=== PATIENT | female | born 1990 | race African-American/Black ===

== ENCOUNTER 2019-01-25 09:05 | Emergency (ER) | payer SELFPAY ==
[2019-01-25 09:12] VITALS: BP 126/73; PULSE 73; TEMP 97.5; BMI 28.0
--- NOTE | 2019-01-25 09:36 | PDOC ---
History of Present Illness - General Chief Complaint: ,Possible Stated Complaint: BODYPAIN POSSIBLE Time Seen by Provider: 01/25/19 09:34 History Source: Patient Exam Limitations: No Limitations - History of Present Illness Travel History: No Initial Comments: 01/25/19 09:49 Patient is here with concerns about . States had tubes tied a few years ago, but states she has had some symptoms of including bloating , abnormal menstrual cycle, breast tenderness and cramps in her legs. Has been 5 times, 4 live births and one miscarriage. States the symptoms are similar to her in the past. LMP was December 22 01/25/19 09:50 Timing/Duration: reports: getting worse Quality: reports: mild Pain Radiation: reports: no radiation Activities at Onset: reports: none Past History - Travel Traveled outside of the country in the last 30 days: No Close contact w/someone who was outside of country & ill: No - Past Medical History Allergies/Adverse Reactions: Allergies Allergy/AdvReac Type Severity Reaction Status Date / Time No Known Allergies Allergy Verified 01/25/19 09:09 Home Medications: Ambulatory Orders NK [No Known Home Medication] 01/25/19 - Suicide/Smoking/Psychosocial Hx Smoking History: Never smoked Information on smoking cessation initiated: No Hx Alcohol Use: No Drug/Substance Use Hx: No Review of Systems - Review of Systems Able to Perform ROS?: Yes Is the patient limited Swedish proficient: Yes Constitutional: Yes: Symptoms Reported, See HPI, Loss of Appetite, Malaise. No : Chills, Fever HEENTM: No: Symptoms Reported Respiratory: No: Symptoms reported Musculoskeletal: No: Symptoms Reported Integumentary: Yes: See HPI. No: Symptoms Reported All Other Systems: Reviewed and Negative *Physical Exam - Vital Signs Last Vital Signs Temp Pulse Resp BP Pulse Ox 97.5 F L 73 17 126/73 100 01/25/19 09:09 01/25/19 09:09 01/25/19 09:09 01/25/19 09:09 01/25/19 09:09 - Physical Exam General Appearance: Yes: Nourished, Appropriately Dressed, Apparent Distress HEENT: positive: JULIETA, Normal ENT Inspection, TMs Normal, Pharynx Normal Neck: positive: Supple Respiratory/Chest: positive: Normal Breath Sounds Gastrointestinal/Abdominal: positive: Soft. negative: Tender, Distended, Guarding, Rebound Musculoskeletal: positive: Normal Inspection Extremity: positive: Normal Capillary Refill, Normal Inspection Integumentary: positive: Normal Color, Dry, Warm Neurologic: positive: plush dresser II-XII NML intact, Fully Oriented, Alert, Normal Mood/ Affect, Normal Response, Motor Strength /5 Progress Note - Progress Note Progress Note: U negative urine negative.. *DC/Admit/Observation/Transfer Diagnosis at time of Disposition: Primary dysmenorrhea - Discharge Dispostion Disposition: HOME Condition at time of disposition: Stable Decision to Admit order: No - Referrals - Patient Instructions Printed Discharge Instructions: DI for Dysmenorrhea Additional Instructions: Rest, drink lots of fluids: Teas, water, soups Eva jj, carbonated beverages for the bubbles May try peppermint teas Avoid heavy , spicy or fatty foods until symptoms have resolved Followup with private physician in one to 2 days as needed Return to emergency department for worsened symptoms, fevers, dehydration - Post Discharge Activity Forms/Work/School Notes: Back to Work
== END 2019-01-25 10:23 | disposition home or self-care (01) ==
LOC: JERFT 09:05
DX: N94.4 Primary dysmenorrhea (principal)
CPT/HCPCS: 84703; 99281-25

== ENCOUNTER 2019-05-13 20:33 | Emergency (ER) | payer OTHER | END 2019-05-14 03:36 | LOC: JER 05-14 03:36 ==

== ENCOUNTER 2019-05-14 04:23 | Inpatient (IN) | payer OTHER ==
--- NOTE | 2019-05-14 04:26 | HP ---
[facility] Rehab Assess/Revision - Admission History Admitted to Rehab from: Emergency Department Date of Admission to Rehab: 05/14/2019 - Vital signs Vital Signs: B/P: 136/70 HR: 96 - Findings Detox History & Physical reviewed: Yes (ED and from earlier presentation to the [facility].) Concur with findings: Yes Comments/Additional Findings: Patient was assessed in the [facility] on 05/13/19 and sent to [facility] ED for evaluation of abdominal pain. ED PE and diagnostic tests reviewed. ED report indicates UTI (possible pylonephritis) and patient was returned to [facility] on antibiotic therapy today. Patient PE in [facility] and Utox reviewed. Patient states w/o buprenorphine use for 5 days. Patient remains a candidate for rehab with diagnoses early remission marijuana and buprenorphine. Inpatient Rehab Admission - Rehab Decision to Admit Inpatient rehab admission?: Yes - Initial Determination Are CD services needed?: Yes Free of communicable disease: Yes Not in need of hospitalization: Yes - Rehab Admission Criteria Previous failed treatment: Yes Poor recovery environment: Yes Comorbidities: Yes Lacks judgement: No Patient is meeting Inpatient Rehab admission criteria:: Yes
[2019-05-14] MEDS ORDERED: LOPERAMIDE HCL 2 MG CAPSULE PO PRN (05:08)
[2019-05-14] MEDS ORDERED: hydrOXYzine PAMOATE 50 MG CAPSULE (FP) PO PRN (05:08)
[2019-05-14] MEDS ORDERED: MAGNESIUM HYDROX 2400MG/30ML ORAL SUSPENSION 30 ML CUP PO PRN (05:08)
[2019-05-14] MEDS ORDERED: MENTHOL/PHENOL 1 EACH UD MM PRN (05:08)
[2019-05-14] MEDS ORDERED: ACETAMINOPHEN 325 MG TABLET (FP) PO PRN (05:08)
[2019-05-14] MEDS ORDERED: P-EPHED 60MG/TRIPROLIDI 2.5MG TABLET PO PRN (05:08)
[2019-05-14] MEDS ORDERED: guaiFENesin 200 MG/10 ML 10 ML UNIT-DOSE CUPS PO PRN (05:08)
[2019-05-14] MEDS ORDERED: MAG HYDROX/AL HYDROX/SIMETH 30 ML UNIT-DOSE CUP PO PRN (05:08)
[2019-05-14] MEDS ORDERED: MAGNESIUM CITRATE 300 ML BOTTLE PO PRN (05:08)
--- NOTE | 2019-05-14 07:30 | CONSULT ---
[facility] Psychiatric Consult - Data Date of interview: 05/14/19 Admission source: Drug court Identifying data: Ms Lott is a 28 years old single Black female, mother of 4 children, unemployed receving food stamp, living with children's father seeking rehab treatment for opioid, cocaine and cannabis Substance Abuse History: Reports history of heroin, suboxone, crack cocaine and marijuana use. Refer to addiction counselor's summary for further information Medical History: Significant for anemia, bronchial asthma and x2(2015 , 2016). Smokes 5 cigarette daily Psychiatric History: Reports that her first psychiatric contact was on 05/04/19 while at [facility]) for feeling depressed. She was prescribed Prozac 10mg/day for depression and Seroquel 50 mg/ hs for insomnia. She was released on 05/13/19 and referred to this facility. At present, denies depressive symptoms, S/H ideations. After discussion of symptomatology presented while at [facility], patient's pathology is more consistent with Adjustment Disorder R/O Dysthymia. According to typewriters functional tester, administration of psychotropic medication is not indicated at this time. Physical/Sexual Abuse/Trauma History: Denies history of any type of abuse as well as DV relationship. Additional Comment: Reports history of 3 previous misdemear arrests. Denies being on probation but reports having an open case of possession of paraphernalia Mental Status Exam - Mental Status Exam Alert and Oriented to: Time, Place, Person Cognitive Function: Fair Patient Appearance: Well Groomed Mood: Hopeful, Euthymic Patient Behavior: Cooperative Speech Pattern: Clear Voice Loudness: Normal Thought Process: Intact, Goal Oriented Thought Disorder: Not Present Hallucinations: Denies Suicidal Ideation: Denies Homicidal Ideation: Denies Insight/Judgement: Poor Sleep: Poorly Appetite: Fair Muscle strength/Tone: Normal Gait/Station: Normal Psychiatric Findings - Problem List ([place] 1, 2,3) (1) Adjustment disorder with depressed mood Current Visit: Yes Status: Acute (2) Substance induced mood disorder Current Visit: Yes Status: Ruled-out (3) Substance-induced sleep disorder Current Visit: Yes Status: Acute (4) Opiate dependence Current Visit: No Status: Acute (5) Cocaine dependence Current Visit: No Status: Acute (6) Cannabis dependence Current Visit: Yes Status: Acute (7) Nicotine dependence Current Visit: Yes Status: Chronic (8) Anemia Current Visit: Yes Status: Acute (9) Asthma Current Visit: Yes Status: Chronic - Initial Treatment Plan Initial Treatment Plan: 1) Start Belsomra 10 mg po HS prn for insomnia. 2) Continue inpatient rehabilitation
[2019-05-14] MEDS: CEPHALEXIN MONOHYDRATE 500 MG CAPSULE (UD) PO SCH ×2 (10:31→21:10)
[2019-05-14] MEDS: PRENATAL VITAMINS W/ FOLIC ACID TABLET (FP) PO SCH (10:31)
[2019-05-14] MEDS: IBUPROFEN 400 MG TABLET (FP) PO PRN ×2 (12:28→18:39)
[2019-05-14 15:17] LABS: ALBUMIN 2.6 g/dl (3.4-5.0); BILIRUBIN,TOTAL 0.4 mg/dL (0.2-1); BLOOD UREA NITROGEN 9.9 mg/dL (7-18); CALCIUM 8.2 mg/dL (8.5-10.1); CREATININE 1.2 mg/dL (0.55-1.3); POTASSIUM 3.5 mmol/L (3.5-5.1); TOT PROT 5.8 g/dl (6.4-8.2)
[2019-05-14 15:18] LABS: HEMATOCRIT 28.6 % (32.4-45.2); HEMOGLOBIN 9.1 GM/dL (10.7-15.3); MCH 28.4 pg (25.7-33.7); MCHC 31.9 g/dl (32.0-36.0); MEAN PLT VOLUME 8.9 fl (7.5-11.1); PLATELET COUNT 234 K/MM3 (134-434); RBC 3.21 M/mm3 (3.60-5.2); RDW 14.4 % (11.6-15.6); WHITE BLOOD COUNT 16.1 K/mm3 (4.0-10.0)
[2019-05-14] MEDS ORDERED: SUVOREXANT 10 MG TABLET PO PRN (22:00)
[2019-05-14] MEDS ORDERED: THIAMINE HCL 100 MG TABLET (FP) PO SCH (22:00)
[2019-05-14] MEDS ORDERED: FERROUS SO4 325 MG TABLET (FP) PO SCH (22:00)
[2019-05-14] MEDS ORDERED: MELATONIN 5 MG TABLETS PO PRN (22:00)
--- NOTE | 2019-05-15 08:08 | PN ---
[facility] Progress Note Note: Patient has a temp of T102.7F. She had a fever earlier on 05/13/2019 and was sent to ER. Patient was diagnosed with UTI Vital Signs Temperature 102.7 F H 05/15/19 07:35 Pulse Rate 109 H 05/15/19 07:35 Respiratory Rate 18 05/15/19 07:35 Blood Pressure 135/84 05/15/19 07:35 O2 Sat by Pulse Oximetry (%) Action: Tylenol 650g tablet oral Q6H Continue Cephalexin 500mg tablet oral for 7 days
--- NOTE | 2019-05-15 09:37 | PN ---
[facility] Progress Note Note: This is a follow up visit on this patient who is currently receiving treatment started in the ED at [facility] for pyelonephritis This morning she had a fever of 102.7, current temperature is 98.6. She reports generalized malaise, productive cough without SOB, chills, abdominal discomfort with one episode of vomiting. She also reports headache to one side of the head. She has elevated white count. She denies chest pain, urinary frequency, dysuria or hematuria PE Vital Signs Temperature 98.6 F 05/15/19 09:12 Pulse Rate 92 H 05/15/19 09:12 Respiratory Rate 18 05/15/19 09:12 Blood Pressure 135/82 05/15/19 09:12 O2 Sat by Pulse Oximetry (%) Abnormal Lab Results 05/14/19 05/14/19 08:45 08:45 WBC 16.1 H RBC 3.21 L Hgb 9.1 L Hct 28.6 L D MCHC 31.9 L Random Glucose 167 H Calcium 8.2 L Total Protein 5.8 L Albumin 2.6 L General Appearance: Appears tired, no acute distress HEENT: AT/NC, sclera and conjunctiva without injection, no nasal congestion, oral mucosa moist and pink, no adenopathy CHEST:Lungs clear with no adventitious sounds CVS:S1S2, RRR ABD: BSx4, soft, ND, mild tenderness in the left upper quadrant when coughing, mild CVA tenderness EXT: No edema Skin: Normal color A/P Pyelonephritis-Continue keflex as ordered Cough-Cough medicine as ordered Headache-Tylenol/Motrin as ordered If further episodes of fever, will order chest x-ray Leukocytosis-Repeat CBC on 05/17 Anemia-Continue ferrous sulfate d/w nursing
[2019-05-15] MEDS: CEPHALEXIN MONOHYDRATE 500 MG CAPSULE (UD) PO SCH (10:39)
[2019-05-15] MEDS: PRENATAL VITAMINS W/ FOLIC ACID TABLET (FP) PO SCH (10:39)
[2019-05-15 14:39] VITALS: BP 136/83; PULSE 91; TEMP 102
--- NOTE | 2019-05-15 14:52 | PN ---
[facility] Progress Note Note: Patient continues to have fever, headache not relieved by analgesia, toxic appearing. Patient needs further evaluation in the ED for possible IV antibiotic. Report given to Dr. Bermudez Vital Signs - 8 hr 05/15/19 05/15/19 05/15/19 07:35 09:12 14:39 Temperature 102.7 F H 98.6 F 102 F H Pulse Rate 109 H 92 H 91 H Respiratory 18 18 20 Rate Blood Pressure 135/84 135/82 136/83
== END 2019-05-15 23:29 | disposition short-term general hospital (02) | DRG 772 ==
LOC: YASAS 04:23 → Y3E 04:40
PROVIDERS: ADMIT Neuromusculoskeletal Medicine & OMM; ATTEND Neuromusculoskeletal Medicine & OMM
PROC: HZ42ZZZ Group Counseling for Substance Abuse Treatment, Cognitive-Behavioral (ICD-10-PCS; principal; 2019-05-14)
DX: F11.20 Opioid dependence, uncomplicated (principal); F14.20 Cocaine dependence, uncomplicated; F12.20 Cannabis dependence, uncomplicated; F17.210 Nicotine dependence, cigarettes, uncomplicated; F43.21 Adjustment disorder with depressed mood; F19.24 Other psychoactive substance dependence with psychoactive substance-induced mood disorder; F19.282 Other psychoactive substance dependence with psychoactive substance-induced sleep disorder; D72.829 Elevated white blood cell count, unspecified; D64.9 Anemia, unspecified; J45.909 Unspecified asthma, uncomplicated; R50.9 Fever, unspecified; R05 Cough; R51 Headache; N12 Tubulo-interstitial nephritis, not specified as acute or chronic
CPT/HCPCS: 36415; 80053; 85027; 86480; 86593

== ENCOUNTER 2019-05-15 16:37 | Inpatient (IN) | payer OTHER ==
[2019-05-15] MEDS ORDERED: ACETAMINOPHEN 1000 MG/100 ML VIAL (NON FORMULARY) IVPB ONE (17:42)
[2019-05-15] MEDS ORDERED: ONDANSETRON 4 MG/2 ML VIAL IVPUSH ONE (17:42)
[2019-05-15] MEDS ORDERED: SODIUM CHLORIDE 1,000 ML IV STA (17:42)
[2019-05-15] MEDS ORDERED: ONDANSETRON 4 MG/2 ML VIAL ONE (18:04)
[2019-05-15] MEDS ORDERED: ACETAMINOPHEN INJECTION 100 ML IVPB ONE (18:04)
--- NOTE | 2019-05-15 19:02 | PDOC ---
History of Present Illness - General Chief Complaint: SIRS, Suspected/Possible Stated Complaint: FEVER Time Seen by Provider: 05/15/19 17:30 History Source: Patient Exam Limitations: No Limitations Past History - Past Medical History Allergies/Adverse Reactions: Allergies Allergy/AdvReac Type Severity Reaction Status Date / Time No Known Allergies Allergy Verified 05/15/19 16:56 Home Medications: Ambulatory Orders Fluoxetine HCl [Prozac] 10 mg PO DAILY 05/13/19 Quetiapine Fumarate [Seroquel -] 50 mg PO HS 05/13/19 Advair 250-50 Diskus 05/14/19 Cephalexin [Keflex] 500 mg PO BID #14 capsule 05/14/19 Anemia: Yes Asthma: Yes Cancer: No Cardiac Disorders: No CVA: No COPD: No CHF: No Dementia: No Diabetes: No GI Disorders: No Disorders: No HTN: No Hypercholesterolemia: No Kidney Stones: No Liver Disease: No Seizures: No Thyroid Disease: No - Surgical History Abdominal Surgery: No Appendectomy: No Cardiac Surgery: No Cholecystectomy: No Lung Surgery: No Neurologic Surgery: No Orthopedic Surgery: No - Reproductive History PID: No - Immunization History Immunization Up to Date: No - Suicide/Smoking/Psychosocial Hx Smoking History: Current every day smoker Have you smoked in the past 12 months: No Number of Cigarettes Smoked Daily: 10 Information on smoking cessation initiated: No Hx Alcohol Use: No Drug/Substance Use Hx: No Hx Substance Use Treatment: Yes ([place] 2014) *Physical Exam - Vital Signs Last Vital Signs Temp Pulse Resp BP Pulse Ox 101.2 F H 89 18 132/78 98 05/15/19 16:56 05/15/19 16:56 05/15/19 16:56 05/15/19 16:56 05/15/19 16:56 - Physical Exam General Appearance: Yes: Other (Ill-appearing). No: Apparent Distress Respiratory/Chest: positive: Lungs Clear, Normal Breath Sounds. negative: Respiratory Distress Cardiovascular: positive: Regular Rhythm, Regular Rate, S1, S2. negative: Murmur Gastrointestinal/Abdominal: positive: Tender (epigastric region), Soft. negative: Guarding, Rebound, Mass Musculoskeletal: positive: CVA Tenderness (L) Neurologic: positive: Alert ED Treatment Course - LABORATORY CBC & Chemistry Diagram: 05/15/19 18:50 05/15/19 18:50 - RADIOLOGY Radiology Studies Ordered: Category Date Time Status CHEST PA & LAT [RAD] Stat Radiology 05/15/19 17:42 Ordered Medical Decision Making - Medical Decision Making 28 y/o F hx of polysusbtance abuse, asthma, adjustment disorder, recently incarcerated from 05/04-05/13, presents with fever since release from halfway. Was seen in ED on 05/13 for diffuse abdominal pain, was dx with pyelo and discharged on Keflex. Patient has been taking Keflex, but still with continued fever. Patient was sent from [address] [place] [address] for further evaluation. Also endorses productive cough, body aches, SOLORIO, and 2 episodes of NBNB emesis today. Denies throat pain, sob, cp, diarrhea, dysuria, hematuria. Patient had CT A/P done on prior ED visit, raising concern for possible L lower lobe consolidation Urine culture from prior visit shows non-lactose fermenting GNB Consider pyelo vs PNA Plan: labs, urine, blood/urine culture, CXR, IVF, Tylenol, zofran, reassess 05/15/19 18:59 Urine here negative CXR also appears negative However, given ?LLL consolidation seen on prior CT A/P and also with +urine culture from recent visit, will treat with abx that covers for both Will give Levaquin Chem and lactic acid still pending 05/15/19 19:33 Lactic acid normal Rest of chem unremarkable will admit patient for further management 05/15/19 19:39 *DC/Admit/Observation/Transfer Diagnosis at time of Disposition: Sepsis Qualifiers: Sepsis type: sepsis due to unspecified organism Sepsis acute organ dysfunction status: without acute organ dysfunction Qualified Code(s): A41.9 - Sepsis, unspecified organism - Discharge Dispostion Condition at time of disposition: Stable Decision to Admit order: Yes - Referrals - Patient Instructions - Post Discharge Activity
[2019-05-15 19:08] LABS: VENOUS PH 7.55 (7.31-7.41)
[2019-05-15 19:09] LABS: EPI CELLS 2.3 /HPF (0-5/HPF); HYALINE CASTS 1 /lpf (0-8); PH,URINE >= 9.0 (5.0-8.0); URINE APPEARANCE CLEAR; URINE BACTERIA 8.6 /hpf (NEGATIVE); URINE BILIRUBIN NEGATIVE (NEGATIVE); URINE COLOR YELLOW; URINE GLUCOSE (UA) NEGATIVE (NEGATIVE); URINE KETONE NEGATIVE (NEGATIVE); URINE LEUK ESTERASE NEGATIVE (NEGATIVE); URINE NITRITE NEGATIVE (NEGATIVE); URINE PROTEIN 1+ (NEGATIVE); URINE RBC 2 /hpf (0-4); URINE WBC 2 /hpf (0-5)
[2019-05-15 19:30] LABS: BASO % 0.5 % (0-2.0); EOS % 0.1 % (0-4.5); HEMATOCRIT 29.3 % (32.4-45.2); HEMOGLOBIN 9.9 GM/dL (10.7-15.3); MCHC 33.8 g/dl (32.0-36.0); MEAN CELL VOLUME 85.8 fl (80-96); MEAN PLT VOLUME 8.8 fl (7.5-11.1); MONO % 8.2 % (3.8-10.2); NEUT % 75.2 % (42.8-82.8); PLATELET COUNT 293 K/MM3 (134-434); RBC 3.41 M/mm3 (3.60-5.2); RDW 14.4 % (11.6-15.6); WHITE BLOOD COUNT 11.6 K/mm3 (4.0-10.0)
[2019-05-15 19:37] LABS: ALBUMIN 2.7 g/dl (3.4-5.0); BILIRUBIN,TOTAL 0.3 mg/dL (0.2-1); CALCIUM 9.1 mg/dL (8.5-10.1); CREATININE 0.8 mg/dL (0.55-1.3); POTASSIUM 4.6 mmol/L (3.5-5.1); TOT PROT 6.7 g/dl (6.4-8.2)
--- NOTE | 2019-05-15 20:25 | PN ---
Teaching Attending Note Name of Resident: Gila Quezada ATTENDING PHYSICIAN STATEMENT I saw and evaluated the patient. I reviewed the resident's note and discussed the case with the resident. I agree with the resident's findings and plan as documented. SUBJECTIVE: Patient is a 28 year old woman with PMH of Polysusbtance abuse, Asthma, Adjustment disorder, ?IDDM, Pancreatitis, Hypothyroidism, Diverticulosis and Opioid dependence recently incarcerated from 05/04-05/13, presents with fever since release from halfway. Was seen in ER on 05/13/19 for diffuse abdominal pain with associated nausea, vomiting and diarrhea - CT sacn of abdomen/pelvis with IV contrast showed bibasilar consolidation/atelectasis (L>R), and possible ? pyelonephritis. She also had pyuria with leukocyte esterase and was treated as a case of pyelonephritis and discharged on Keflex. Patient has been taking Keflex, but still with continued fever. Patient was sent from [address] [place] [address] for further evaluation. Also has productive cough, body aches, headache and two episodes of vomiting today. Denies throat pain, SOB, chest pain, diarrhea, dysuria or hematuria. Urine culture from prior visit shows non-lactose fermenting GNB. LMP 04/17/19. OBJECTIVE: Alert Vital Signs Period Temp Pulse Resp BP Sys/Hoff Pulse Ox Last 24 Hr 101.2 F 89 18 132/78 98 HEENT: No Jaundice, eye redness or discharge, PERRLA, EOMI. Normocephalic, atraumatic. External ears are normal and hearing is grossly intact. No nasal discharge. Neck: Supple, nontender. No palpable adenopathy or thyromegaly. No JVD Chest: Good effort. Clear to auscultation and percussion. Heart: Regular. No S3, rub or murmur Abdomen: Not distended, soft, nontender and no HSM. No rebound or guarding. Normal bowel sounds. Ext: Peripheral pulses intact. No leg edema. Skin: Warm and dry. No petechiae, rash or ecchymosis. Neuro: Alert. Oriented x3. CN 2-12 grossly intact. Sensation grossly intact in all four extremities and DTR are symmetric. Psych: Appropriate mood and affect. Good insight. Current Medications Generic Name Dose Route Start Last Admin Trade Name Freq PRN Reason Stop Dose Admin Levofloxacin 750 mg in 150 mls @ 100 mls/hr 05/15/19 19:35 05/15/19 20:14 Levaquin 750 Mg Premixed Ivpb - IVPB 05/15/19 21:04 100 mls/hr ONCE ONE Administration Protocol Home Medications Medication Instructions Recorded Fluoxetine HCl [Prozac] 10 mg PO DAILY 05/13/19 Quetiapine Fumarate [Seroquel -] 50 mg PO HS 05/13/19 Advair 250-50 Diskus 05/14/19 Cephalexin [Keflex] 500 mg PO BID #14 capsule 05/14/19 Abnormal Lab Results 05/15/19 05/15/19 05/15/19 18:49 18:50 18:50 WBC 11.6 H RBC 3.41 L Hgb 9.9 L Hct 29.3 L Absolute Neuts (auto) 8.7 H VBG pH POC VBG pCO2 POC VBG pO2 VBG O2 Sat (Martha) VBG Base Excess Sodium 135 L Anion Gap 7 L Albumin 2.7 L Urine pH >= 9.0 H D Urine Protein 1+ H 05/15/19 18:50 WBC RBC Hgb Hct Absolute Neuts (auto) VBG pH 7.55 H POC VBG pCO2 28.0 L POC VBG pO2 202 H VBG O2 Sat (Martha) 99.6 H VBG Base Excess 3.1 H Sodium Anion Gap Albumin Urine pH Urine Protein ASSESSMENT AND PLAN: 1. Pyelonephritis - Though she does not have pyuria today, her urine pH is 9. No infiltrate on her CXR from today. Will get blood culture. Based on the yet to be identified non-lactose fermenting GNB, will treat her with IV Zosyn, IV NS and consult ID. Will add Azithromycin for possible atypical pneumonia. Will continue comprehensive care of all her comorbid conditions. 2. DM For now, we will hold the home diabetes drugs and implement sliding scale insulin regimen. Provide comprehensive diabetes care with patient teaching and counseling about the importance of adherence to prescribed diabetes regimen, euglycemia, eye care and foot care. 3. Tobacco Use Counseled on risks associated with tobacco use. We will provide patient all the necessary assistance to facilitate smoking cessation and prescribe Nicotine patch. 4. Anemia - Likely multifactorial. Will do basic anemia work up including serial stool guaiacs, reticulocyte count and iron studies. 5. Overweight Counseled on the risks associated with being over weight. Will provide patient all the necessary assistance, counseling and positive reinforcement to facilitate weight loss. Consult demand planning manager. 6. Polysubstance abuse - Monitor closely for signs of withdrawal. Do neurochecks. Implement seizure, fall and aspiration precautions. Counseled patient about abstaining from illicit drug use. Will consult medical front desk specialist and refer to Drug detox upon discharge. 7. DVT prophylaxis - Lovenox 40 mg SQ q 24 hours. 8. Advance directives - Full code
[2019-05-15 21:31] LABS: ANISOCYTOSIS 0; MACROCYTOSIS 0; OVALOCYTE 1+; PLATELET ESTIMATE NORMAL
[2019-05-15] MEDS: SODIUM CHLORIDE 1,000 ML IV SCH (21:45)
--- NOTE | 2019-05-15 22:27 | HP ---
CHIEF COMPLAINT:fever PCP:None HISTORY OF PRESENT ILLNESS: Patient is a 28 year old female with history of polysubstance abuse (from [facility]), presented to the ED due to worsening fever, cough and SOB that started 3 days ago. Patient was recently incarcerated (05/04-05/13), and on the started experiencing fevers, body aches, cough with diffuse abdominal pain. She came to the ED where CT of abdomen was done, revealing LLL consolidation and had a UTI. She was discharged on Keflex 500mg BID and went back to [facility]. Today, patient experienced worsening fever, chills, cough and SOB due to pain when she takes deep breaths, and so she was brought back to the ED. Of note, urine cultures on 05/13 grew non lactose fermenting GNB. Patient denies nausea, vomiting, chest pain, abdominal pain, diarrhea, urinary symptoms. ER course was notable for: (1)Levaquin 750x 1 given (2)[id number], WBC 11.6 (3) Recent Travel:denies PAST MEDICAL HISTORY: none PAST SURGICAL HISTORY: none Social History: Smoking:denies Alcohol:denies Drugs: takes heroin and cocaine Family History:Mother- DM Allergies No Known Allergies Allergy (Verified 05/15/19 16:56) HOME MEDICATIONS: Home Medications Medication Instructions Recorded Fluoxetine HCl [Prozac] 10 mg PO DAILY 05/13/19 Quetiapine Fumarate [Seroquel -] 50 mg PO HS 05/13/19 Advair 250-50 Diskus 05/14/19 Cephalexin [Keflex] 500 mg PO BID #14 capsule 05/14/19 REVIEW OF SYSTEMS CONSTITUTIONAL: fever, chills Absent: diaphoresis, generalized weakness, malaise, loss of appetite, weight change HEENT: Absent: rhinorrhea, nasal congestion, throat pain, throat swelling, difficulty swallowing, mouth swelling, ear pain, eye pain, visual changes CARDIOVASCULAR: Absent: chest pain, syncope, palpitations, irregular heart rate, lightheadedness , peripheral edema RESPIRATORY: cough, shortness of breath Absent: dyspnea with exertion, orthopnea, wheezing, stridor, hemoptysis GASTROINTESTINAL: Absent: abdominal pain, abdominal distension, nausea, vomiting, diarrhea, constipation, melena, hematochezia GENITOURINARY: Absent: dysuria, frequency, urgency, hesitancy, hematuria, flank pain, genital pain MUSCULOSKELETAL: Absent: myalgia, arthralgia, joint swelling, back pain, neck pain SKIN: Absent: rash, itching, pallor HEMATOLOGIC/IMMUNOLOGIC: Absent: easy bleeding, easy bruising, lymphadenopathy, frequent infections ENDOCRINE: Absent: unexplained weight gain, unexplained weight loss, heat intolerance, cold intolerance NEUROLOGIC: Absent: headache, focal weakness or paresthesias, dizziness, unsteady gait, seizure, mental status changes, bladder or bowel incontinence PSYCHIATRIC: Absent: anxiety, depression, suicidal or homicidal ideation, hallucinations. PHYSICAL EXAMINATION Vital Signs - 24 hr 05/15/19 16:56 Temperature 101.2 F H Pulse Rate 89 Respiratory 18 Rate Blood Pressure 132/78 O2 Sat by Pulse 98 Oximetry (%) GENERAL: Awake, alert, and fully oriented, in no acute distress. HEAD: Normal with no signs of trauma. EYES: PERRLA, EOMI, sclera anicteric, conjunctiva clear. EARS, NOSE, THROAT: Moist mucous membranes. NECK: Normal range of motion, supple. LUNGS: Decreased breath sounds on bilateral bases. HEART: Regular rate and rhythm, normal S1 and S2 without murmur, rub or gallop. ABDOMEN: Soft, nontender, not distended, normoactive bowel sounds. MUSCULOSKELETAL: Normal range of motion at all joints. No CVA tenderness. UPPER EXTREMITIES: 2+ pulses, warm, well-perfused. No peripheral edema. LOWER EXTREMITIES: 2+ pulses, warm, well-perfused. No peripheral edema. NEUROLOGICAL: Cranial nerves II-XII intact. Normal speech. Normal gait. PSYCHIATRIC: Cooperative. Good eye contact. Appropriate mood and affect. SKIN: Warm, dry, normal turgor, no rashes or lesions noted. Laboratory Results - last 24 hr 05/15/19 05/15/19 05/15/19 18:49 18:50 18:50 WBC 11.6 H RBC 3.41 L Hgb 9.9 L Hct 29.3 L MCV 85.8 MCH 29.0 MCHC 33.8 RDW 14.4 Plt Count 293 D MPV 8.8 Absolute Neuts (auto) 8.7 H Total Counted 100 Neutrophils % 75.2 Neutrophils % (Manual) 74.8 Band Neutrophils % 1.0 Lymphocytes % 16.0 D Lymphocytes % (Manual) 14.1 Monocytes % 8.2 D Monocytes % (Manual) 10 Eosinophils % 0.1 D Eosinophils % (Manual) 0.0 Basophils % 0.5 D Basophils % (Manual) 0.0 Myelocytes % (Man) 0 Promyelocytes % (Man) 0 Blast Cells % (Manual) 0 Nucleated RBC % 0 Metamyelocytes 0 Hypochromia 0 Platelet Estimate Normal Polychromasia 1+ Poikilocytosis 1+ Anisocytosis 0 Microcytosis 0 Macrocytosis 0 Ovalocytes 1+ VBG pH POC VBG pCO2 POC VBG pO2 VBG HCO3 VBG O2 Sat (Martha) VBG Base Excess Sodium Potassium Chloride Carbon Dioxide Anion Gap BUN Creatinine Est GFR (CKD-EPI)AfAm Est GFR (CKD-EPI)NonAf Random Glucose Lactic Acid 0.6 Calcium Total Bilirubin AST ALT Alkaline Phosphatase Total Protein Albumin Urine Color Yellow Urine Appearance Clear Urine pH >= 9.0 H D Ur Specific [place] 1.011 Urine Protein 1+ H Urine Glucose (UA) Negative Urine Ketones Negative Urine Blood Negative Urine Nitrite Negative Urine Bilirubin Negative Urine Urobilinogen 1.0 Ur Leukocyte Esterase Negative Urine WBC (Auto) 2 Urine RBC (Auto) 2 Urine Casts (Auto) 1 U Epithel Cells (Auto) 2.3 Urine Bacteria (Auto) 8.6 05/15/19 05/15/19 18:50 18:50 WBC RBC Hgb Hct MCV MCH MCHC RDW Plt Count MPV Absolute Neuts (auto) Total Counted Neutrophils % Neutrophils % (Manual) Band Neutrophils % Lymphocytes % Lymphocytes % (Manual) Monocytes % Monocytes % (Manual) Eosinophils % Eosinophils % (Manual) Basophils % Basophils % (Manual) Myelocytes % (Man) Promyelocytes % (Man) Blast Cells % (Manual) Nucleated RBC % Metamyelocytes Hypochromia Platelet Estimate Polychromasia Poikilocytosis Anisocytosis Microcytosis Macrocytosis Ovalocytes VBG pH 7.55 H POC VBG pCO2 28.0 L POC VBG pO2 202 H VBG HCO3 24.7 VBG O2 Sat (Martha) 99.6 H VBG Base Excess 3.1 H Sodium 135 L Potassium 4.6 Chloride 100 Carbon Dioxide 28 Anion Gap 7 L BUN 10.0 Creatinine 0.8 Est GFR (CKD-EPI)AfAm 117.10 Est GFR (CKD-EPI)NonAf 101.04 Random Glucose 82 Lactic Acid Calcium 9.1 Total Bilirubin 0.3 AST 24 ALT 21 Alkaline Phosphatase 84 Total Protein 6.7 Albumin 2.7 L Urine Color Urine Appearance Urine pH Ur Specific [place] Urine Protein Urine Glucose (UA) Urine Ketones Urine Blood Urine Nitrite Urine Bilirubin Urine Urobilinogen Ur Leukocyte Esterase Urine WBC (Auto) Urine RBC (Auto) Urine Casts (Auto) U Epithel Cells (Auto) Urine Bacteria (Auto) ASSESSMENT/PLAN: Patient is a 28 year old female with history of polysubstance abuse (from [place]), presented to the ED due to worsening fever, cough and SOB that started 3 days ago. #Sepsis likely 2/2 CAP, Pyelonephritis -Chest CT on 05/13 revealed bibasilar consolidation, L>R -UA (05/13): Nonlactose fermenting GNB -CXR today is unremarkable, but UA showing pH>9 -WBC 11.6 (down from 16.1 on 05/14), Febrile at 101.2 -Levaquin 750mg given at the ED -Will start IV Zosyn 3.375 q8h and Vancomycin 1gm daily -Blood cultures pending -ID (Dr. Bishop) consulted. #Anemia -baseline 12 (05/13), currently 9.9 -will order iron studies, retic count #FEN -IV NS at 100cc/hr -Electrolytes wnl, routine bmp monitoring -Regular diet #Prophylaxis -Lovenox 40mg sq daily #Disposition -full code -med surg Visit type - Emergency Visit Emergency Visit: Yes ED Registration Date: 05/15/19 Care time: The patient presented to the Emergency Department on the above date and was hospitalized for further evaluation of their emergent condition. - New Patient This patient is new to me today: Yes Date on this admission: 05/16/19 - Critical Care Critical Care patient: No ATTENDING PHYSICIAN STATEMENT I saw and evaluated the patient. I reviewed the resident's note and discussed the case with the resident. I agree with the resident's findings and plan as documented. SUBJECTIVE: OBJECTIVE: ASSESSMENT AND PLAN:
[2019-05-15] MEDS ORDERED: VANCOMYCIN 1 GM in D5W (PRE-DOCKED) 1,000 MG/250 ML IVPB SCH (22:30)
[2019-05-15] MEDS ORDERED: VANCOMYCIN 1 GRAM (PRE-DOCKED) 1,000 MG/250 ML BAG IVPB ONE (22:40)
[2019-05-16] MEDS ORDERED: PIPERACILLIN/TAZOBACTAM 3.375 GM VIAL IVPB ONE ×2 (02:27→09:58)
[2019-05-16] MEDS ORDERED: DEXTROSE 5%-WATER - 50 ML IVPB ONE ×3 (02:27→16:01)
[2019-05-16] MEDS: PIPERACILLIN/TAZOB 3.375 GM 3.375 GM in DEXTROSE 5%-WATER - 50 ML IVPB SCH ×3 (02:44→16:19)
[2019-05-16 03:13] VITALS: BMI 25.4
[2019-05-16] MEDS: ACETAMINOPHEN 325 MG TABLET (FP) PO PRN ×2 (06:41→21:28)
[2019-05-16 09:29] LABS: BASO % 0.2 % (0-2.0); EOS % 0.1 % (0-4.5); HEMATOCRIT 27.8 % (32.4-45.2); HEMOGLOBIN 9.2 GM/dL (10.7-15.3); LYMPH % 15.5 % (8-40); MCH 28.5 pg (25.7-33.7); MCHC 33.1 g/dl (32.0-36.0); MEAN CELL VOLUME 86.1 fl (80-96); MONO % 11.4 % (3.8-10.2); NEUT % 72.8 % (42.8-82.8); PLATELET COUNT 268 K/MM3 (134-434); RBC 3.23 M/mm3 (3.60-5.2); RDW 14.1 % (11.6-15.6); WHITE BLOOD COUNT 8.8 K/mm3 (4.0-10.0)
[2019-05-16 09:49] LABS: ALBUMIN 2.3 g/dl (3.4-5.0); BILIRUBIN,TOTAL 0.3 mg/dL (0.2-1); BLOOD UREA NITROGEN 7.9 mg/dL (7-18); CALCIUM 8.4 mg/dL (8.5-10.1); CREATININE 0.7 mg/dL (0.55-1.3); MAGNESIUM 2.3 mg/dL (1.8-2.4); PHOSPHOROUS 3.6 mg/dL (2.5-4.9); POTASSIUM 4.2 mmol/L (3.5-5.1)
[2019-05-16] MEDS: ENOXAPARIN NA (PORCINE) 40 MG/0.4 ML DISP.SYRIN SQ SCH (10:02)
[2019-05-16] MEDS ORDERED: IBUPROFEN 600 MG TABLET (FP) PO ONE (11:17)
--- NOTE | 2019-05-16 11:32 | EKG ---
Test Reason : Blood Pressure : / mmHG Vent. Rate : 074 BPM Atrial Rate : 074 BPM P-R Int : 124 ms QRS Dur : 080 ms QT Int : 394 ms P-R-T Axes : 062 068 057 degrees QTc Int : 437 ms NORMAL SINUS RHYTHM WITH SINUS ARRHYTHMIA NORMAL ECG WHEN COMPARED WITH ECG OF 14-MAY-2019 06:18, VENT. RATE HAS DECREASED BY 37 BPM NONSPECIFIC T WAVE ABNORMALITY NO LONGER EVIDENT IN INFERIOR LEADS Confirmed by ANEESH YAN MD ([id number]) on 05/16/2019 11:32:19 AM Referred By: Confirmed By:ANEESH YAN MD
[2019-05-16] MEDS: SODIUM CHLORIDE 1,000 ML IV SCH ×2 (14:39→21:30)
--- NOTE | 2019-05-16 15:23 | PN ---
Progress Note (short form) - Note Progress Note: ID consult dictated imp/reccd 28 yo female admitted from detox with fever, cough, Right sided abdominal pain she was seen in ED on 05/13 with same complains abdominal pain started 3 days earlier +fevers no dysuria no IVDU +heroine, crack and cigretted no dysuria no vomiting denies HIV or hepatitis on PE has clear lungs and RIght sided abdominal pain most c/w pyelonephritis doubt biliary urine culture with ecoli normal lfts suggest switch to rocephin hiv and hep serology-patient is agreeable will review ct scan in am-no comment about gallbladder
[2019-05-16] MEDS ORDERED: cefTRIAXone SODIUM 1 GM VIAL ONE (16:01)
[2019-05-16] MEDS: CEFTRIAXONE 1 GM in DEXTROSE 5%-WATER - 50 ML IVPB SCH (16:09)
--- NOTE | 2019-05-16 18:54 | PN ---
Progress Note (short form) - Note Progress Note: SUBJECTIVE: Complains of headache and R sided flank pain. No further fevers. No dysuria/hematuria. No nausea/vomiting. OBJECTVE: Afebrile, Hemodynamicaly stable. Last Vital Signs Temp Pulse Resp BP Pulse Ox 98.6 F 80 18 135/79 97 05/16/19 18:38 05/16/19 18:38 05/16/19 18:38 05/16/19 18:38 05/16/19 09:00 HEENT - Atramatic, Normocephalic Heart - S1, S2, RRR Lungs - clear to auscultation Abdomen- soft, tender R flank/CVA tenderness. Bowel Sounds normal. Extremities - no edema, no calf tenderness. Neuro - AAO x 3. Tone/Power normal all 4 extremities. Laboratory Results - last 24 hr 05/15/19 05/15/19 05/15/19 18:49 18:50 18:50 WBC 11.6 H RBC 3.41 L Hgb 9.9 L Hct 29.3 L MCV 85.8 MCH 29.0 MCHC 33.8 RDW 14.4 Plt Count 293 D MPV 8.8 Absolute Neuts (auto) 8.7 H Total Counted 100 Neutrophils % 75.2 Neutrophils % (Manual) 74.8 Band Neutrophils % 1.0 Lymphocytes % 16.0 D Lymphocytes % (Manual) 14.1 Monocytes % 8.2 D Monocytes % (Manual) 10 Eosinophils % 0.1 D Eosinophils % (Manual) 0.0 Basophils % 0.5 D Basophils % (Manual) 0.0 Myelocytes % (Man) 0 Promyelocytes % (Man) 0 Blast Cells % (Manual) 0 Nucleated RBC % 0 Metamyelocytes 0 Hypochromia 0 Platelet Estimate Normal Polychromasia 1+ Poikilocytosis 1+ Anisocytosis 0 Microcytosis 0 Macrocytosis 0 Ovalocytes 1+ Retic Count VBG pH POC VBG pCO2 POC VBG pO2 VBG HCO3 VBG O2 Sat (Martha) VBG Base Excess Sodium Potassium Chloride Carbon Dioxide Anion Gap BUN Creatinine Est GFR (CKD-EPI)AfAm Est GFR (CKD-EPI)NonAf Random Glucose Lactic Acid 0.6 Calcium Phosphorus Magnesium Iron TIBC Iron Saturation Unsaturated IBC Ferritin Total Bilirubin AST ALT Alkaline Phosphatase Total Protein Albumin Urine Color Yellow Urine Appearance Clear Urine pH >= 9.0 H D Ur Specific [place] 1.011 Urine Protein 1+ H Urine Glucose (UA) Negative Urine Ketones Negative Urine Blood Negative Urine Nitrite Negative Urine Bilirubin Negative Urine Urobilinogen 1.0 Ur Leukocyte Esterase Negative Urine WBC (Auto) 2 Urine RBC (Auto) 2 Urine Casts (Auto) 1 U Epithel Cells (Auto) 2.3 Urine Bacteria (Auto) 8.6 05/15/19 05/15/19 05/16/19 18:50 18:50 08:30 WBC 8.8 RBC 3.23 L Hgb 9.2 L Hct 27.8 L MCV 86.1 MCH 28.5 MCHC 33.1 RDW 14.1 Plt Count 268 MPV 8.0 Absolute Neuts (auto) 6.4 Total Counted Neutrophils % 72.8 Neutrophils % (Manual) Band Neutrophils % Lymphocytes % 15.5 Lymphocytes % (Manual) Monocytes % 11.4 H Monocytes % (Manual) Eosinophils % 0.1 Eosinophils % (Manual) Basophils % 0.2 Basophils % (Manual) Myelocytes % (Man) Promyelocytes % (Man) Blast Cells % (Manual) Nucleated RBC % 0 Metamyelocytes Hypochromia Platelet Estimate Polychromasia Poikilocytosis Anisocytosis Microcytosis Macrocytosis Ovalocytes Retic Count VBG pH 7.55 H POC VBG pCO2 28.0 L POC VBG pO2 202 H VBG HCO3 24.7 VBG O2 Sat (Martha) 99.6 H VBG Base Excess 3.1 H Sodium 135 L Potassium 4.6 Chloride 100 Carbon Dioxide 28 Anion Gap 7 L BUN 10.0 Creatinine 0.8 Est GFR (CKD-EPI)AfAm 117.10 Est GFR (CKD-EPI)NonAf 101.04 Random Glucose 82 Lactic Acid Calcium 9.1 Phosphorus Magnesium Iron TIBC Iron Saturation Unsaturated IBC Ferritin Total Bilirubin 0.3 AST 24 ALT 21 Alkaline Phosphatase 84 Total Protein 6.7 Albumin 2.7 L Urine Color Urine Appearance Urine pH Ur Specific [place] Urine Protein Urine Glucose (UA) Urine Ketones Urine Blood Urine Nitrite Urine Bilirubin Urine Urobilinogen Ur Leukocyte Esterase Urine WBC (Auto) Urine RBC (Auto) Urine Casts (Auto) U Epithel Cells (Auto) Urine Bacteria (Auto) 05/16/19 05/16/19 05/16/19 08:30 08:30 08:30 WBC RBC Hgb Hct MCV MCH MCHC RDW Plt Count MPV Absolute Neuts (auto) Total Counted Neutrophils % Neutrophils % (Manual) Band Neutrophils % Lymphocytes % Lymphocytes % (Manual) Monocytes % Monocytes % (Manual) Eosinophils % Eosinophils % (Manual) Basophils % Basophils % (Manual) Myelocytes % (Man) Promyelocytes % (Man) Blast Cells % (Manual) Nucleated RBC % Metamyelocytes Hypochromia Platelet Estimate Polychromasia Poikilocytosis Anisocytosis Microcytosis Macrocytosis Ovalocytes Retic Count 0.50 VBG pH POC VBG pCO2 POC VBG pO2 VBG HCO3 VBG O2 Sat (Martha) VBG Base Excess Sodium 137 Potassium 4.2 Chloride 103 Carbon Dioxide 27 Anion Gap 8 BUN 7.9 Creatinine 0.7 Est GFR (CKD-EPI)AfAm 137.62 Est GFR (CKD-EPI)NonAf 118.74 Random Glucose 85 Lactic Acid Calcium 8.4 L Phosphorus 3.6 Magnesium 2.3 Iron 18 L TIBC 222 L Iron Saturation 8 L Unsaturated IBC 204 Ferritin 91.6 Total Bilirubin 0.3 AST 10 L ALT 17 Alkaline Phosphatase 72 Total Protein 6.0 L Albumin 2.3 L Urine Color Urine Appearance Urine pH Ur Specific [place] Urine Protein Urine Glucose (UA) Urine Ketones Urine Blood Urine Nitrite Urine Bilirubin Urine Urobilinogen Ur Leukocyte Esterase Urine WBC (Auto) Urine RBC (Auto) Urine Casts (Auto) U Epithel Cells (Auto) Urine Bacteria (Auto) Current Medications Generic Name Dose Route Start Last Admin Trade Name Freq PRN Reason Stop Dose Admin Acetaminophen 650 mg 05/16/19 06:19 05/16/19 06:41 Tylenol - PO 650 mg Q6H PRN Administration PAIN OR FEVER Enoxaparin Sodium 40 mg 05/16/19 10:00 05/16/19 10:02 Lovenox - SQ 40 mg DAILY ANA LAURA Administration Sodium Chloride 1,000 mls @ 100 mls/hr 05/15/19 21:00 05/16/19 14:39 Normal Saline - IV 100 mls/hr ASDIR ANA LAURA Administration Ceftriaxone Sodium 1 gm/ 50 mls @ 100 mls/hr 05/16/19 15:30 05/16/19 16:09 Dextrose IVPB 100 mls/hr DAILY ANA LAURA Administration Protocol Home Medications Medication Instructions Recorded NK [No Known Home Medication] 05/16/19 ASSESSMENT/PLAN: 28 year old female with Polysubstance Abuse (Heroin, Crack, tobacco), presents from [facility] with R flank pain/tenderness, fever, dry cough 1. Sepsis secondary to CAP and Pyelonephritis. WBC 16.1 on 05/14, Febrile at 101.[address] 05/13 - bibasilar consolidation, L>R Urine Cx (05/13) Ecoli - repeat Cx pending. Received IV Zosyn/Vancomycin - switched to IV ceftriaxone by ID. 2. Iron Deficiency Anemia - etiology unclear H/H 9.9/27.8/MCV 86.1 Iron Sat 8 Will supplement with FeSO4 Further Ix as out-patient. No acute blood loss evident Hemodynamically Stable. 3. Hx Polysubstance Abuse - no evidence of withdrawals. DVT Px - Lovenox SQ Visit type - Emergency Visit Emergency Visit: Yes ED Registration Date: 05/15/19 Care time: The patient presented to the Emergency Department on the above date and was hospitalized for further evaluation of their emergent condition. - New Patient This patient is new to me today: Yes Date on this admission: 05/16/19 - Critical Care Critical Care patient: No - Discharge Referral Referred to [facility] Med [facility] No
--- NOTE | 2019-05-16 19:00 | CONS ---
DATE OF CONSULTATION: DATE OF DICTATION: 05/16/2019 REQUESTED BY: Hospitalist service. This is a 28-year-old woman, who is a polysubstance user, no IV drug use. She uses crack, heroin, and she smokes cigarettes. She apparently was recently incarcerated from to the , and on the started experiencing fever, body aches, and some cough. She reports since the , she started having right-sided abdominal pain. She came to detox, was sent to the ER. She had fever and they did a CAT scan. There is a question of whether she had bibasilar pneumonia versus atelectasis. She was started on Keflex and she went back to detox. She started having worsening fevers, chills. She continued to have pain on her right side. She was brought back to the ER. She was given vancomycin and Levaquin in the ER yesterday, switched to vancomycin and Zosyn today, and I am asked to see her. She is feeling much better. She reports she is not an injection user. She uses crack and heroin. She stopped smoking on the . She has never been in the hospital except to have children. There is no recent travel. Past medical history is unremarkable. Surgical history is notable for 2 sections. She has 4 children, all of which she had at [facility] in [place]. SOCIAL HISTORY: She was smoking until the , and substance use is all smoking. She has been HIV and hepatitis C tested and reports she is negative for both. She wishes to be re-tested. She has a family history of diabetes in her mother. No known drug allergies. Her medications include Prozac, Seroquel, Advair, and she was started on Keflex on the . Review of systems is notable for the fact she is feeling better, fevers and chills have resolved, but she does have this discomfort on her right side. PHYSICAL EXAMINATION: General: She is awake and alert, afebrile. Vital Signs: Temperature is 98.5. Pulse 62. Blood pressure 134/89. Respiratory rate 18. HEENT: Normocephalic. Her eyes are anicteric. Neck: Supple. Lungs: Clear to auscultation. Heart: Regular rate and rhythm. Abdomen: Soft. She has some right-sided pain that radiates to her right back and appears to be more flank than right upper quadrant. The rest of her abdominal exam is benign. Extremities: Without edema. Skin: She has no skin rashes. Labs are notable for a white count on admission that was 11.6, today is 8.8, hemoglobin 9.2, platelets are 268. BUN 7.9 and creatinine 0.7. Liver function tests are normal. Urinalysis on admission on the had small leukocytes. Urine culture on the grew E coli that was santiago-sensitive. In summary, this is a 28-year-old, polysubstance user, admitted with what clinically on exam appears to be pyelonephritis. I doubt this is biliary, but she has had a CAT scan and there is no mention of her gallbladder, so would suggest that we review her CAT scan. I would switch her to ceftriaxone at this time, HIV and hepatitis B serology, and would review the CAT scan and we may need to do an ultrasound of her gallbladder in the morning. Will follow up her cultures. Further recommendations to follow. ARIANA ALEXANDRE M.D. [id number]
[2019-05-16] MEDS ORDERED: VANCOMYCIN 1 GM in D5W (PRE-DOCKED) 1,000 MG/250 ML IVPB SCH (22:26)
[2019-05-17] MEDS: SODIUM CHLORIDE 1,000 ML IV SCH ×3 (01:32→21:42)
[2019-05-17 08:03] LABS: BASO % 0.3 % (0-2.0); EOS % 0.5 % (0-4.5); HEMATOCRIT 29.2 % (32.4-45.2); HEMOGLOBIN 9.8 GM/dL (10.7-15.3); LYMPH % 24.6 % (8-40); MCH 28.8 pg (25.7-33.7); MCHC 33.4 g/dl (32.0-36.0); MEAN CELL VOLUME 86.2 fl (80-96); MEAN PLT VOLUME 7.9 fl (7.5-11.1); MONO % 11.8 % (3.8-10.2); NEUT % 62.8 % (42.8-82.8); PLATELET COUNT 294 K/MM3 (134-434); RBC 3.39 M/mm3 (3.60-5.2); RDW 14.2 % (11.6-15.6); WHITE BLOOD COUNT 7.7 K/mm3 (4.0-10.0)
[2019-05-17 08:27] LABS: BLOOD UREA NITROGEN 6.6 mg/dL (7-18); CALCIUM 8.5 mg/dL (8.5-10.1); CREATININE 0.7 mg/dL (0.55-1.3); POTASSIUM 4.3 mmol/L (3.5-5.1)
[2019-05-17] MEDS ORDERED: cefTRIAXone SODIUM 1 GM VIAL ONE (09:43)
[2019-05-17] MEDS ORDERED: DEXTROSE 5%-WATER - 50 ML IVPB ONE (09:44)
[2019-05-17] MEDS: CEFTRIAXONE 1 GM in DEXTROSE 5%-WATER - 50 ML IVPB SCH (10:26)
[2019-05-17] MEDS: ENOXAPARIN NA (PORCINE) 40 MG/0.4 ML DISP.SYRIN SQ SCH (10:26)
[2019-05-17 11:30] LABS: ANISOCYTOSIS 1+; MACROCYTOSIS 0; PLATELET ESTIMATE NORMAL
--- NOTE | 2019-05-17 14:28 | PN ---
Teaching Attending Note Name of Resident: Ingrid Cabral ATTENDING PHYSICIAN STATEMENT I saw and evaluated the patient. I reviewed the resident's note and discussed the case with the resident. I agree with the resident's findings and plan as documented. SUBJECTIVE: headache resolved. R sided flank pain improving. No further fevers. No dysuria/hematuria. No nausea/vomiting. OBJECTVE: Afebrile, Hemodynamicaly stable. Last Vital Signs Temp Pulse Resp BP Pulse Ox 98.6 F 65 18 131/79 97 05/17/19 09:00 05/17/19 09:00 05/17/19 09:00 05/17/19 09:00 05/17/19 09:00 Heart - S1, S2, RRR Lungs - clear to auscultation Abdomen- soft, tender RUQ/ R flank/CVA tenderness. Bowel Sounds normal. Extremities - no edema, no calf tenderness. Neuro - AAO x 3. Tone/Power normal all 4 extremities. Laboratory Results - last 24 hr 05/17/19 05/17/19 05/17/19 06:25 06:25 06:25 WBC 7.7 RBC 3.39 L Hgb 9.8 L Hct 29.2 L MCV 86.2 MCH 28.8 MCHC 33.4 RDW 14.2 Plt Count 294 MPV 7.9 Absolute Neuts (auto) 4.9 Neutrophils % 62.8 Neutrophils % (Manual) 55.6 Band Neutrophils % 0.0 Lymphocytes % 24.6 D Lymphocytes % (Manual) 25.3 D Monocytes % 11.8 H Monocytes % (Manual) 15 H Eosinophils % 0.5 D Eosinophils % (Manual) 0.0 Basophils % 0.3 Basophils % (Manual) 0.0 Myelocytes % (Man) 1 D Promyelocytes % (Man) 0 Blast Cells % (Manual) 0 Nucleated RBC % 0 Metamyelocytes 0 Hypochromia 0 Platelet Estimate Normal Platelet Comment Present Polychromasia 1+ Poikilocytosis 0 Anisocytosis 1+ Microcytosis 1+ Macrocytosis 0 Sodium 139 Potassium 4.3 Chloride 106 Carbon Dioxide 28 Anion Gap 6 L BUN 6.6 L Creatinine 0.7 Est GFR (CKD-EPI)AfAm 137.62 Est GFR (CKD-EPI)NonAf 118.74 Random Glucose 74 Calcium 8.5 HIV 1&2 Antibody Screen Cancelled HIV P24 Antigen Cancelled Current Medications Generic Name Dose Route Start Last Admin Trade Name Freq PRN Reason Stop Dose Admin Acetaminophen 650 mg 05/16/19 06:19 05/16/19 21:28 Tylenol - PO 650 mg Q6H PRN Administration PAIN OR FEVER Enoxaparin Sodium 40 mg 05/16/19 10:00 05/17/19 10:26 Lovenox - SQ 40 mg DAILY ANA LAURA Administration Sodium Chloride 1,000 mls @ 100 mls/hr 05/15/19 21:00 05/17/19 10:29 Normal Saline - IV 100 mls/hr ASDIR ANA LAURA Administration Ceftriaxone Sodium 1 gm/ 50 mls @ 100 mls/hr 05/16/19 15:30 05/17/19 10:26 Dextrose IVPB 100 mls/hr DAILY ANA LAURA Administration Protocol Home Medications Medication Instructions Recorded NK [No Known Home Medication] 05/16/19 ASSESSMENT/PLAN: 28 year old female with Polysubstance Abuse (Heroin, Crack, tobacco), presents from [facility] with R flank pain/tenderness, fever, dry cough 1. Sepsis secondary to CAP and Pyelonephritis. WBC 16.1 on 05/14, Febrile at 101.2, now afebrile for > [address] Chest 05/13 - bibasilar consolidation, L>R Urine Cx (05/13) Ecoli - repeat Cx no growth Received IV Zosyn/Vancomycin on admission - switched to IV ceftriaxone by ID - medically stable for discharge on 7 days Bactrim pending RUQ US. 2. Iron Deficiency Anemia - etiology unclear Iron Sat 8 Will supplement with FeSO4 Further Ix as out-patient. No acute blood loss evident Hemodynamically Stable. 3. Hx Polysubstance Abuse - no evidence of withdrawals. DVT Px - Lovenox SQ
--- NOTE | 2019-05-17 14:56 | PN ---
Progress Note (short form) - Note Progress Note: no fevers still with some right flank pain Vital Signs Period Temp Pulse Resp BP Sys/Hoff Pulse Ox Last 24 Hr 98.3 F-99.5 F 62-80 18-18 131-151/71-89 97-99 cor-rrr lungs clear abd soft, RUQ and Right CVAT ext no edema CBC, BMP 05/17/19 06:25 05/17/19 06:25 Microbiology 05/15/19 18:49 Urine - Urine Clean Catch Urine Culture - Final NO GROWTH OBTAINED 05/15/19 18:50 Blood - Peripheral Venous Blood Culture - Preliminary NO GROWTH OBTAINED AFTER 24 HOURS, INCUBATION TO CONTINUE FOR 4 DAYS. 05/15/19 18:50 Blood - Peripheral Venous Blood Culture - Preliminary NO GROWTH OBTAINED AFTER 24 HOURS, INCUBATION TO CONTINUE FOR 4 DAYS. urine culture with ecoli normal lfts a/p RUQ pain/right flank pain agree with sonogram gallbladder/renal sonogram continue rocephin if sono is negative can switch to bactrim 1 ds po bid for 7 days
--- NOTE | 2019-05-17 17:45 | PN ---
Physical Exam: SUBJECTIVE: Patient seen and examined. Endorses some hematuria. Denies polyuria / dysuria/N/V/D. Afebrile. Pt had RUQ US today showing distended GB however pt was not fasting. Will repeat RUQ US tomorrow, fasting. Pt to be NPO at midnight. OBJECTIVE: Vital Signs Period Temp Pulse Resp BP Sys/Hoff Pulse Ox Last 24 Hr 98.3 F-99.5 F 64-80 18-18 131-151/62-87 97-99 GENERAL: AOx3 NAD. HEENT: NCAT. No lymphadenopathy. No conjunctival pallor LUNGS: CTABL no wheezes, no crackles, no accessory muscle use. HEART: Regular rate and rhythm, S1, S2 without murmur, rub or gallop. ABDOMEN: Tender to palpation RUQ and suprapubic region. + bowel sounds. No masses palpated. EXTREMITIES: 2+ pulses, warm, well-perfused, no edema. SKIN: No rashes or lesions noted Laboratory Results - last 24 hr 05/17/19 05/17/19 05/17/19 06:25 06:25 06:25 WBC 7.7 RBC 3.39 L Hgb 9.8 L Hct 29.2 L MCV 86.2 MCH 28.8 MCHC 33.4 RDW 14.2 Plt Count 294 MPV 7.9 Absolute Neuts (auto) 4.9 Neutrophils % 62.8 Neutrophils % (Manual) 55.6 Band Neutrophils % 0.0 Lymphocytes % 24.6 D Lymphocytes % (Manual) 25.3 D Monocytes % 11.8 H Monocytes % (Manual) 15 H Eosinophils % 0.5 D Eosinophils % (Manual) 0.0 Basophils % 0.3 Basophils % (Manual) 0.0 Myelocytes % (Man) 1 D Promyelocytes % (Man) 0 Blast Cells % (Manual) 0 Nucleated RBC % 0 Metamyelocytes 0 Hypochromia 0 Platelet Estimate Normal Platelet Comment Present Polychromasia 1+ Poikilocytosis 0 Anisocytosis 1+ Microcytosis 1+ Macrocytosis 0 Sodium 139 Potassium 4.3 Chloride 106 Carbon Dioxide 28 Anion Gap 6 L BUN 6.6 L Creatinine 0.7 Est GFR (CKD-EPI)AfAm 137.62 Est GFR (CKD-EPI)NonAf 118.74 Random Glucose 74 Calcium 8.5 HIV 1&2 Antibody Screen Cancelled HIV P24 Antigen Cancelled Active Medications Generic Name Dose Route Start Last Admin Trade Name Shelby PRN Reason Stop Dose Admin Acetaminophen 650 mg 05/16/19 06:19 05/16/19 21:28 Tylenol - PO 650 mg Q6H PRN Administration PAIN OR FEVER Docusate Sodium 100 mg 05/17/19 22:00 Colace - PO BID ANA LAURA Enoxaparin Sodium 40 mg 05/16/19 10:00 05/17/19 10:26 Lovenox - SQ 40 mg DAILY ANA LAURA Administration Ferrous Sulfate 325 mg 05/17/19 22:00 Feosol - PO BID ANA LAURA Sodium Chloride 1,000 mls @ 100 mls/hr 05/15/19 21:00 05/17/19 10:29 Normal Saline - IV 100 mls/hr ASDIR ANA LAURA Administration Ceftriaxone Sodium 1 gm/ 50 mls @ 100 mls/hr 05/16/19 15:30 05/17/19 10:26 Dextrose IVPB 100 mls/hr DAILY ANA LAURA Administration Protocol Imaging: CT abd/pel: 05/13/19: 1. Bibasilar consolidation/atelectasis, left greater than right. 2. Hepatomegaly and borderline splenomegaly. 3. Retroverted uterus, cystic adnexae and free pelvic fluid. Pelvic sonographic follow-up recommended. Please see above discussion. Abd/Renal/US 05/17/19: Partially distended gallbladder with suggestion of wall thickening measuring 4 mm that may be due to nonfasting. No gross intraluminal stones or pericholecystic free fluid are identified. Correlate clinically for further evaluation. ASSESSMENT/PLAN: 28 y.o. F PMG polysubstance abuse (coaine, heroin) presented for fever, cough and SOB. #Sepsis 2/2 pyelonephritis and CAP -CT abd pel 05/13 showed bibasilar consolidation L>R. -Urine cx 05/13 + for E. Coli -Repeat urine cx 05/15 NGTD; blood cx's neg -Day #3 abx- c/w IV Rocephin -Leukocytosis resolved -Afebrile, normocardic -ID following (Dr. Randall) #RUQ tenderness -RUQ US shows GB distension, however pt ate lunch prior to procedure -Repeat RUQ US tomorrow, fasting -Surgery (Dr. Layne) consulted #Iron Deficiency anemia -Iron 18, TIBC 222 -Feosol #Polysubstance abuse -pt not having WD -Monitor vitals #FEN -NS @ 100mL/ hr -Trend lytes -NPO at midnight #DVT PPX -LVX 40mg SQ daily Visit type - Emergency Visit Emergency Visit: No - New Patient This patient is new to me today: Yes Date on this admission: 05/17/19 - Critical Care Critical Care patient: No ATTENDING PHYSICIAN STATEMENT I saw and evaluated the patient. I reviewed the resident's note and discussed the case with the resident. I agree with the resident's findings and plan as documented. SUBJECTIVE: OBJECTIVE: ASSESSMENT AND PLAN:
[2019-05-17] MEDS: FERROUS SO4 325 MG TABLET (FP) PO SCH (21:42)
[2019-05-17] MEDS: DOCUSATE SODIUM 100 MG CAPSULE (FP) PO SCH (21:42)
[2019-05-17] MEDS: ACETAMINOPHEN 325 MG TABLET (FP) PO PRN (21:43)
[2019-05-18 08:10] LABS: BASO % 0.5 % (0-2.0); EOS % 0.8 % (0-4.5); HEMATOCRIT 29.7 % (32.4-45.2); LYMPH % 33.1 % (8-40); MCH 28.8 pg (25.7-33.7); MCHC 33.5 g/dl (32.0-36.0); MEAN PLT VOLUME 7.4 fl (7.5-11.1); MONO % 12.3 % (3.8-10.2); NEUT % 53.3 % (42.8-82.8); PLATELET COUNT 335 K/MM3 (134-434); RBC 3.46 M/mm3 (3.60-5.2); RDW 14.4 % (11.6-15.6); WHITE BLOOD COUNT 6.1 K/mm3 (4.0-10.0)
[2019-05-18 08:34] LABS: ALBUMIN 2.6 g/dl (3.4-5.0); BILIRUBIN,TOTAL 0.4 mg/dL (0.2-1); BLOOD UREA NITROGEN 7.2 mg/dL (7-18); CREATININE 0.8 mg/dL (0.55-1.3); MAGNESIUM 2.5 mg/dL (1.8-2.4); PHOSPHOROUS 4.6 mg/dL (2.5-4.9); POTASSIUM 4.4 mmol/L (3.5-5.1); TOT PROT 6.5 g/dl (6.4-8.2)
--- NOTE | 2019-05-18 09:33 | CONSULT ---
- Consultation REQUESTING PROVIDER: CONSULT REQUEST: We have been asked to surgically evaluate this patient for thickened gallbladder PCP:Erica Guerrero HISTORY OF PRESENT ILLNESS: 28yo F presented to the ED from [facility] for complaints of fever, chills, n/v, and abd pain. Pt was diagnosed with pylonephritis and admitted for abx. Pt had abd US which showed possible thickened gallbladder, but no stones or sludge. Pt denies RUQ pain, describes RLQ and Rt flank pain. Pt denies pain after eating fatty foods, or history of gallbladder disease. PMHx: Asthma PSHx: x 2 Home Medications Medication Instructions Recorded Acetaminophen [Tylenol .Regular 650 mg PO Q6H PRN tablet 05/17/19 Strength -] Docusate Sodium [Colace -] 100 mg PO BID capsule 05/17/19 Ferrous Sulfate [Feosol] 325 mg PO BID #60 ud 05/17/19 Sulfamethoxazole/Trimethoprim 1 tab PO BID 5 Days #10 tablet 05/17/19 [Bactrim Ds -] Allergies Allergy/AdvReac Type Severity Reaction Status Date / Time No Known Allergies Allergy Verified 05/15/19 16:56 PHYSICAL EXAM: GENERAL: Awake, alert, and fully oriented, in no acute distress. HEAD: Normal with no signs of trauma. EYES: PERRL, sclera anicteric, conjunctiva clear. NECK: Normal ROM, supple without lymphadenopathy, JVD, or masses. LUNGS: Clear to auscultation bilat anteriorly. No wheezes, and no crackles. No accessory muscle use. HEART: Regular rate and rhythm. No murmurs ABDOMEN: soft, nondistended, RLQ and Rt kelly pain LOWER EXTREMITIES: warm, well-perfused. No calf tenderness. No peripheral edema. NEUROLOGICAL: Normal speech, gait not observed. PSYCH: Cooperative. Good eye contact. Appropriate mood and affect. SKIN: Warm, dry, normal turgor, no rashes or lesions noted. Vital Signs Temperature 97.8 F 05/18/19 05:00 Pulse Rate 50 L 05/18/19 05:00 Respiratory Rate 20 05/18/19 05:00 Blood Pressure 143/87 05/18/19 05:00 O2 Sat by Pulse Oximetry (%) 97 05/17/19 21:00 Lab Results WBC 6.1 K/mm3 (4.0-10.0) 05/18/19 07:34 RBC 3.46 M/mm3 (3.60-5.2) L 05/18/19 07:34 Hgb 10.0 GM/dL (10.7-15.3) L 05/18/19 07:34 Hct 29.7 % (32.4-45.2) L 05/18/19 07:34 MCV 86.0 fl (80-96) 05/18/19 07:34 MCHC 33.5 g/dl (32.0-36.0) 05/18/19 07:34 RDW 14.4 % (11.6-15.6) 05/18/19 07:34 Plt Count 335 K/MM3 (134-434) 05/18/19 07:34 Sodium 141 mmol/L (136-145) 05/18/19 07:34 Potassium 4.4 mmol/L (3.5-5.1) 05/18/19 07:34 Chloride 104 mmol/L (98-107) 05/18/19 07:34 Carbon Dioxide 30 mmol/L (21-32) 05/18/19 07:34 Anion Gap 6 MMOL/L (8-16) L 05/18/19 07:34 BUN 7.2 mg/dL (7-18) 05/18/19 07:34 Creatinine 0.8 mg/dL (0.55-1.3) 05/18/19 07:34 Random Glucose 83 mg/dL (74-106) 05/18/19 07:34 Calcium 9.0 mg/dL (8.5-10.1) 05/18/19 07:34 Abd US: Partially distended gallbladder with suggested wall thickening measuring 4mm that may be due to non-fasting Problem List - Problems (1) Abdominal pain Assessment/Plan: Plan - pt issues do not appear to be related to her gallbladder, would recommend continue treatment for pylonephritis - if issues continue pt may follow up with Dr. Layne as outpatient for reevaluation of gallbladder, -if any changes please contact surgery team. Case discussed with Dr. Layne who agrees with plan Code(s): R10.9 - UNSPECIFIED ABDOMINAL PAIN Visit type - Case Type Case Type: ED Admission - Emergency Emergency Visit: Yes ED Registration Date: 05/15/19 Care time: The patient presented to the Emergency Department on the above date and was hospitalized for further evaluation of their emergent condition. - New patient This patient is new to me today: Yes Date on this admission: 05/18/19 - Critical Care Critical Care patient: No
[2019-05-18] MEDS: ENOXAPARIN NA (PORCINE) 40 MG/0.4 ML DISP.SYRIN SQ SCH (10:40)
[2019-05-18] MEDS: DOCUSATE SODIUM 100 MG CAPSULE (FP) PO SCH (10:40)
[2019-05-18] MEDS: FERROUS SO4 325 MG TABLET (FP) PO SCH (10:40)
[2019-05-18] MEDS: CEFTRIAXONE 1 GM in DEXTROSE 5%-WATER - 50 ML IVPB SCH ×2 (10:40→11:25)
[2019-05-18] MEDS ORDERED: DEXTROSE 5%-WATER - 50 ML IVPB ONE (11:19)
[2019-05-18] MEDS ORDERED: cefTRIAXone SODIUM 1 GM VIAL ONE (11:19)
[2019-05-18 13:49] VITALS: BP 136/91; PULSE 63; TEMP 98.1
--- NOTE | 2019-05-18 14:48 | DS ---
Physical Exam: SUBJECTIVE: Patient seen and examined. No acute complaints. Pt had repeat GB US today showing distension, no thickening. Surgery did not recommend acute intervention for GB at this time. Continuing outpatient abx w/ PO Bactrim. OBJECTIVE: Vital Signs Period Temp Pulse Resp BP Sys/Hoff Pulse Ox Last 24 Hr 97.8 F-99.2 F 50-72 18-20 127-145/60-91 97 PHYSICAL EXAM GENERAL: AOx3 NAD. HEENT: NCAT. No lymphadenopathy. No conjunctival pallor. LUNGS: CTABL no wheezes, no crackles, no accessory muscle use. HEART: Regular rate and rhythm, S1, S2 without murmur, rub or gallop. ABDOMEN: Mild TTP RUQ and suprapubic region. + bowel sounds. No masses palpated. EXTREMITIES: 2+ pulses, warm, well-perfused, no edema. SKIN: No rashes or lesions noted LABS Laboratory Results - last 24 hr 05/17/19 05/18/19 05/18/19 06:25 07:34 07:34 WBC 6.1 RBC 3.46 L Hgb 10.0 L Hct 29.7 L MCV 86.0 MCH 28.8 MCHC 33.5 RDW 14.4 Plt Count 335 MPV 7.4 L Absolute Neuts (auto) 3.2 Neutrophils % 53.3 Lymphocytes % 33.1 D Monocytes % 12.3 H Eosinophils % 0.8 Basophils % 0.5 Nucleated RBC % 0 Sodium 141 Potassium 4.4 Chloride 104 Carbon Dioxide 30 Anion Gap 6 L BUN 7.2 Creatinine 0.8 Est GFR (CKD-EPI)AfAm 117.10 Est GFR (CKD-EPI)NonAf 101.04 Random Glucose 83 Calcium 9.0 Phosphorus 4.6 Magnesium 2.5 H Total Bilirubin 0.4 AST 14 L ALT 20 Alkaline Phosphatase 69 Total Protein 6.5 Albumin 2.6 L HIV 1&2 Ag/Ab, 4th Gen Non reactive HOSPITAL COURSE: 28 y.o. F PMH polysubstance abuse (coaine, heroin) presented for fever, cough and SOB. Pt found to be septic 2/2 pyelonephritis and CAP. Urine cx + for E. Coli. Started on IV rocephin. Leukocytosis resolved, currently afebrile. Pt also had findings of RUQ tenderness to palpation. RUQ U/S showed GB distension. Surgery consulted, did not recommend acute surgical intervention at this time. Also found to have iron def anemia, started on Feosol. Pt is clinically and hemodynamically stable. Has not had symptoms of withdrawal throughout hospital stay. She will be discharged to [facility]. Date of Admission:05/15/19 Abd/ pel CT 05/13: Bibasilar consolidation/ atelectasis, L>R. Hepatomegaly and borderline splenomegaly. Retroverted uterus, cystic adnexae and free pelvic fluid. CXR negative GB u/s: gallbladder is adequately distended w/o wall thickening, gallstones or pericholecystic free fluid Date of Discharge: 05/18/19 Minutes to complete discharge: 36 Discharge Summary Reason For Visit: SEPSIS Current Active Problems Abdominal pain (Acute) Sepsis (Acute) Condition: Stable - Instructions Diet, Activity, Other Instructions: Your visit: You were admitted to the hospital because you had a urinary tract infection. You were treated with IV antibiotics. You were also noted to have anemia likely because of iron deficiency. We started you on iron supplement, Feosol, please take them as prescribed. Please note this medication may cause your stool to be black and may cause constipation. You also have belly pain. Ultrasound of your belly showed that your gallbladder was dilated. You were evaluated by surgery and did not recommend any surgical intervention at this time. If you continue to have pain in the side that is worse with eating then discuss this with your doctor they may want to do further testing of your gallbladder. Medication Changes: 1. Please take Bactrim 160mg by mouth twice per day for 7 days starting tomorrow. You will stop taking this medication on 05/25/19. 2. Feosol 325mg by mouth twice a day. Take with food. Continue your other home medications as prescribed. Follow up with the following physicians: 1. Primary care provider in 1 week. If you do not have a primary care provider you may come to the clinic located at [address] to see Dr[address] Cabral on Mondays from 1-4:30PM. Further Instructions: You are being discharged to [facility]. Please return to the ER if you have any signs or symptoms of chest pain, shortness of breath, dizziness, nausea, vomiting, abdominal pains, diarrhea, fevers, fatigue or muscle pains. Please return to the ER if symptoms persist, worsen, or new symptoms arise. Referrals: Terence Carpenter MD [Staff Physician] - Jessee Layne MD [Staff Physician] - Clara Randall MD [Staff Physician] - Disposition: TRANSFER ACUTE CARE/OTHER HOSP - Home Medications Comprehensive Discharge Medication List: Ambulatory Orders Acetaminophen [Tylenol .Regular Strength -] 650 mg PO Q6H PRN tablet 05/17/19 Docusate Sodium [Colace -] 100 mg PO BID capsule 05/17/19 Ferrous Sulfate [Feosol] 325 mg PO BID #60 ud 05/17/19 Sulfamethoxazole/Trimethoprim [Bactrim Ds -] 1 tab PO BID #14 tablet 05/18/19 This patient is new to me today: No Emergency Visit: No Critical Care patient: No - Discharge Referral Referred to [facility] No ATTENDING PHYSICIAN STATEMENT I saw and evaluated the patient. I reviewed the resident's note and discussed the case with the resident. I agree with the resident's findings and plan as documented. SUBJECTIVE: OBJECTIVE: ASSESSMENT AND PLAN:
[2019-05-18 14:58] LABS: ANISOCYTOSIS 0; MACROCYTOSIS 0; PLATELET ESTIMATE NORMAL
--- NOTE | 2019-05-18 15:03 | PN ---
Teaching Attending Note Name of Resident: Ingrid Cabral ATTENDING PHYSICIAN STATEMENT I saw and evaluated the patient. I reviewed the resident's note and discussed the case with the resident. I agree with the resident's findings and plan as documented. SUBJECTIVE:asymptomatic. states abdominal pain has resolved. denies Cp, SOB, fever,c [place], N/V/C/D or dysuria OBJECTIVE: Last Vital Signs Temp Pulse Resp BP Pulse Ox 98.1 F 63 20 136/91 97 05/18/19 13:47 05/18/19 13:47 05/18/19 13:47 05/18/19 13:47 05/17/19 21:00 General NAD CV S1 S2 RRR no murmur/rub/gallop Lungs CTA B/L no wheezing/rales/rhonchi Abdomen soft NT/ND +boudreaux sign no flank tenderness no CVA tendenress ASSESSMENT AND PLAN: 28 year old female with Polysubstance Abuse (Heroin, Crack, tobacco), presents from [facility] with R flank pain/tenderness, fever, dry cough 1. Sepsis secondary to CAP and Pyelonephritis- afebrile. clinically improved. U/ s done showing distended GB. plan to repeat today. surgery consulted. if negative can switch ceftriaxone to bactrim for 7 days. 2. Iron Deficiency Anemia - etiology unclear. start on iron supplements. counselled on side effects including black stools, GI upset and constipation. need to repeat iron studies in 3 months. 3. Hx Polysubstance Abuse - no evidence of withdrawals. 4.DVT Px - Lovenox SQ 5. d/c home pending results of U/s
== END 2019-05-18 16:51 | disposition short-term general hospital (02) | DRG 720 ==
LOC: JER 16:37 → JERBED 20:15 → J5S 05-16 02:13
PROVIDERS: ADMIT Internal Medicine; ATTEND Internal Medicine
DX: A41.9 Sepsis, unspecified organism (principal); J18.9 Pneumonia, unspecified organism; R16.2 Hepatomegaly with splenomegaly, not elsewhere classified; N12 Tubulo-interstitial nephritis, not specified as acute or chronic; D50.9 Iron deficiency anemia, unspecified; F11.10 Opioid abuse, uncomplicated; E11.9 Type 2 diabetes mellitus without complications; F14.10 Cocaine abuse, uncomplicated; F17.210 Nicotine dependence, cigarettes, uncomplicated; B96.29 Other Escherichia coli [E. coli] as the cause of diseases classified elsewhere; J45.909 Unspecified asthma, uncomplicated; F43.20 Adjustment disorder, unspecified; E03.9 Hypothyroidism, unspecified; Z79.4 Long term (current) use of insulin; K57.30 Diverticulosis of large intestine without perforation or abscess without bleeding; E66.3 Overweight; Z68.25 Body mass index [BMI] 25.0-25.9, adult; R51 Headache; J98.11 Atelectasis; N85.4 Malposition of uterus
CPT/HCPCS: 36415; 71046-TC-FY; 76700-TC; 76705-TC; 76775-TC; 80048; 80053; 81003; 82728; 82803; 83540; 83550; 83605; 83735; 84100; 85025; 85044; 86803; 87040; 87086; 87389; 93005; 93010; 99283-25; J0131; J7030

== ENCOUNTER 2019-05-18 17:15 | Inpatient (IN) | payer OTHER | END 2019-06-14 21:31 | disposition home or self-care (01) | LOC: YASAS 17:15 → Y3E 05-19 23:40 ==

== ENCOUNTER 2021-02-22 14:31 | Inpatient (IN) | payer OTHER ==
[2021-02-22 15:19] VITALS: BMI 40.9
[2021-02-22] MEDS ORDERED: ACETAMINOPHEN 325 MG TABLET (FP) PO PRN (22:18)
[2021-02-22] MEDS ORDERED: P-EPHED 60MG/TRIPROLIDI 2.5MG TABLET PO PRN (22:18)
[2021-02-22] MEDS ORDERED: MAGNESIUM HYDROX 2400MG/30ML ORAL SUSPENSION 30 ML CUP PO PRN (22:18)
[2021-02-22] MEDS ORDERED: guaiFENesin 200 MG/10 ML 10 ML UNIT-DOSE CUPS PO PRN (22:18)
[2021-02-22] MEDS ORDERED: MAG HYDROX/AL HYDROX/SIMETH 30 ML UNIT-DOSE CUP PO PRN (22:18)
[2021-02-22] MEDS ORDERED: LOPERAMIDE HCL 2 MG CAPSULE PO PRN (22:18)
[2021-02-22] MEDS ORDERED: NICOTINE POLACRILEX 2 MG GUM BC PRN (22:18)
[2021-02-22] MEDS ORDERED: MAGNESIUM CITRATE 300 ML BOTTLE PO PRN (22:18)
[2021-02-22] MEDS ORDERED: TUBERCULIN PPD 5 TU/0.1ML VIAL ID ONE (22:43)
[2021-02-22] MEDS: MELATONIN 5 MG TABLETS PO SCH (23:03)
[2021-02-23] MEDS: PRENATAL VITAMINS W/ FOLIC ACID TABLET (FP) PO SCH (10:18)
[2021-02-23 12:13] LABS: HEMATOCRIT 34.5 % (32.4-45.2); HEMOGLOBIN 11.6 GM/dL (10.7-15.3); MCH 30.1 pg (25.7-33.7); MCHC 33.6 g/dl (32.0-36.0); MEAN CELL VOLUME 89.6 fl (80-96); MEAN PLT VOLUME 7.7 fl (7.5-11.1); PLATELET COUNT 355 K/MM3 (134-434); RBC 3.85 M/mm3 (3.60-5.2); RDW 13.2 % (11.6-15.6)
[2021-02-23 12:15] LABS: ALBUMIN 3.7 g/dl (3.4-5.0); CALCIUM 8.7 mg/dL (8.5-10.1)
[2021-02-23 12:16] LABS: BLOOD UREA NITROGEN 12.9 mg/dL (7-18)
[2021-02-23 12:19] LABS: CREATININE 0.7 mg/dL (0.55-1.3)
[2021-02-23 12:20] LABS: BILIRUBIN,TOTAL 0.4 mg/dL (0.2-1); TOT PROT 7.4 g/dl (6.4-8.2)
[2021-02-23 21:03] LABS: URINE APPEARANCE CLOUDY; URINE BILIRUBIN NEGATIVE (NEGATIVE); URINE COLOR YELLOW; URINE GLUCOSE (UA) NEGATIVE (NEGATIVE); URINE KETONE NEGATIVE (NEGATIVE); URINE LEUK ESTERASE NEGATIVE (NEGATIVE); URINE NITRITE NEGATIVE (NEGATIVE); URINE PROTEIN NEGATIVE (NEGATIVE); URINE UROBILINOGEN 0.2 mg/dL (0.2-1.0)
[2021-02-23] MEDS: MELATONIN 5 MG TABLETS PO SCH (21:23)
[2021-02-23] MEDS: THIAMINE HCL 100 MG TABLET (FP) PO SCH (21:23)
[2021-02-24] MEDS: PRENATAL VITAMINS W/ FOLIC ACID TABLET (FP) PO SCH (09:18)
[2021-02-24] MEDS: SUVOREXANT 10 MG TABLET PO PRN (21:37)
[2021-02-24] MEDS: MELATONIN 5 MG TABLETS PO SCH (21:37)
[2021-02-24] MEDS: THIAMINE HCL 100 MG TABLET (FP) PO SCH (21:37)
[2021-02-24] MEDS: GABAPENTIN 300 MG CAPSULE PO SCH (21:38)
[2021-02-24] MEDS: IBUPROFEN 400 MG TABLET (FP) PO PRN (21:38)
[2021-02-24] MEDS ORDERED: PT OWN MED DRAWER 7, Y5N ONE (21:58)
[2021-02-25] MEDS: GABAPENTIN 300 MG CAPSULE PO SCH ×2 (10:07→21:06)
[2021-02-25] MEDS: PRENATAL VITAMINS W/ FOLIC ACID TABLET (FP) PO SCH (10:07)
[2021-02-25] MEDS: MELATONIN 5 MG TABLETS PO SCH (21:06)
[2021-02-25] MEDS: THIAMINE HCL 100 MG TABLET (FP) PO SCH (21:06)
[2021-02-25] MEDS: SUVOREXANT 10 MG TABLET PO PRN (21:07)
[2021-02-25] MEDS: IBUPROFEN 400 MG TABLET (FP) PO PRN (21:07)
[2021-02-26 10:11] LABS: SARS-CoV-2 NAA Not Detected (Not Detected)
[2021-02-26] MEDS: PRENATAL VITAMINS W/ FOLIC ACID TABLET (FP) PO SCH (10:19)
[2021-02-26] MEDS: GABAPENTIN 300 MG CAPSULE PO SCH ×2 (10:20→21:37)
[2021-02-26] MEDS: IBUPROFEN 400 MG TABLET (FP) PO PRN ×2 (10:20→21:38)
[2021-02-26] MEDS: THIAMINE HCL 100 MG TABLET (FP) PO SCH (21:37)
[2021-02-26] MEDS: MELATONIN 5 MG TABLETS PO SCH (21:37)
[2021-02-26] MEDS: SUVOREXANT 10 MG TABLET PO PRN (22:37)
[2021-02-27] MEDS: GABAPENTIN 300 MG CAPSULE PO SCH ×2 (10:03→21:07)
[2021-02-27] MEDS: PRENATAL VITAMINS W/ FOLIC ACID TABLET (FP) PO SCH (10:03)
[2021-02-27] MEDS: IBUPROFEN 400 MG TABLET (FP) PO PRN ×2 (10:04→21:07)
[2021-02-27] MEDS: MELATONIN 5 MG TABLETS PO SCH (21:07)
[2021-02-27] MEDS: THIAMINE HCL 100 MG TABLET (FP) PO SCH (21:07)
[2021-02-27] MEDS: SUVOREXANT 10 MG TABLET PO PRN (21:08)
[2021-02-27] MEDS ORDERED: SUVOREXANT 10 MG TABLET PO PRN (22:00)
[2021-02-28] MEDS: GABAPENTIN 300 MG CAPSULE PO SCH ×2 (10:13→21:22)
[2021-02-28] MEDS: PRENATAL VITAMINS W/ FOLIC ACID TABLET (FP) PO SCH (10:14)
[2021-02-28] MEDS: MELATONIN 5 MG TABLETS PO SCH (21:22)
[2021-02-28] MEDS: THIAMINE HCL 100 MG TABLET (FP) PO SCH (21:22)
[2021-02-28] MEDS: SUVOREXANT 10 MG TABLET PO PRN (21:22)
[2021-02-28] MEDS: IBUPROFEN 400 MG TABLET (FP) PO PRN (21:23)
[2021-03-01] MEDS: GABAPENTIN 300 MG CAPSULE PO SCH ×2 (10:33→21:13)
[2021-03-01] MEDS: PRENATAL VITAMINS W/ FOLIC ACID TABLET (FP) PO SCH (10:33)
[2021-03-01] MEDS: MELATONIN 5 MG TABLETS PO SCH (21:13)
[2021-03-01] MEDS: THIAMINE HCL 100 MG TABLET (FP) PO SCH (21:13)
[2021-03-01] MEDS: SUVOREXANT 10 MG TABLET PO PRN (21:13)
[2021-03-02] MEDS: PRENATAL VITAMINS W/ FOLIC ACID TABLET (FP) PO SCH (10:08)
[2021-03-02] MEDS: GABAPENTIN 300 MG CAPSULE PO SCH ×2 (10:08→21:43)
[2021-03-02] MEDS: THIAMINE HCL 100 MG TABLET (FP) PO SCH (21:43)
[2021-03-02] MEDS: MELATONIN 5 MG TABLETS PO SCH (21:43)
[2021-03-02] MEDS: SUVOREXANT 10 MG TABLET PO PRN (21:44)
[2021-03-02] MEDS: IBUPROFEN 400 MG TABLET (FP) PO PRN (21:45)
[2021-03-03] MEDS: PRENATAL VITAMINS W/ FOLIC ACID TABLET (FP) PO SCH (10:07)
[2021-03-03] MEDS: GABAPENTIN 300 MG CAPSULE PO SCH ×2 (10:08→21:38)
[2021-03-03] MEDS: THIAMINE HCL 100 MG TABLET (FP) PO SCH (21:37)
[2021-03-03] MEDS: MELATONIN 5 MG TABLETS PO SCH (21:37)
[2021-03-03] MEDS: IBUPROFEN 400 MG TABLET (FP) PO PRN (21:39)
[2021-03-03] MEDS: SUVOREXANT 10 MG TABLET PO PRN (21:39)
[2021-03-04] MEDS: PRENATAL VITAMINS W/ FOLIC ACID TABLET (FP) PO SCH (10:06)
[2021-03-04] MEDS: GABAPENTIN 300 MG CAPSULE PO SCH ×2 (10:06→21:45)
[2021-03-04] MEDS: MELATONIN 5 MG TABLETS PO SCH (21:45)
[2021-03-04] MEDS: THIAMINE HCL 100 MG TABLET (FP) PO SCH (21:45)
[2021-03-04] MEDS: SUVOREXANT 10 MG TABLET PO PRN (21:46)
[2021-03-04] MEDS: IBUPROFEN 400 MG TABLET (FP) PO PRN (21:47)
[2021-03-05] MEDS ORDERED: COLLOIDAL OATMEAL 1 BAR EACH TP PRN (08:36)
[2021-03-05] MEDS: PRENATAL VITAMINS W/ FOLIC ACID TABLET (FP) PO SCH (10:24)
[2021-03-05] MEDS: GABAPENTIN 300 MG CAPSULE PO SCH ×2 (10:25→22:26)
[2021-03-05] MEDS: SUVOREXANT 10 MG TABLET PO PRN (21:50)
[2021-03-05] MEDS: MELATONIN 5 MG TABLETS PO SCH (22:24)
[2021-03-05] MEDS: THIAMINE HCL 100 MG TABLET (FP) PO SCH (22:26)
[2021-03-06] MEDS: GABAPENTIN 300 MG CAPSULE PO SCH ×2 (10:54→21:18)
[2021-03-06] MEDS: PRENATAL VITAMINS W/ FOLIC ACID TABLET (FP) PO SCH (10:54)
[2021-03-06] MEDS ORDERED: PATIENT'S OWN MEDICATION (NON-FORMULARY) (Hydrochlorothiazide [Hydrochlorothiazide] 12.5 M PO SCH (11:45)
[2021-03-06] MEDS: METHOCARBAMOL 500 MG TABLET PO PRN ×2 (14:05→21:18)
[2021-03-06] MEDS: MELATONIN 5 MG TABLETS PO SCH (21:18)
[2021-03-06] MEDS: SUVOREXANT 10 MG TABLET PO PRN (21:18)
[2021-03-06] MEDS: THIAMINE HCL 100 MG TABLET (FP) PO SCH (21:18)
[2021-03-06] MEDS: IBUPROFEN 400 MG TABLET (FP) PO PRN (21:19)
[2021-03-07] MEDS: GABAPENTIN 300 MG CAPSULE PO SCH ×2 (10:50→21:14)
[2021-03-07] MEDS: METHOCARBAMOL 500 MG TABLET PO PRN ×2 (10:50→21:14)
[2021-03-07] MEDS: PRENATAL VITAMINS W/ FOLIC ACID TABLET (FP) PO SCH (10:50)
[2021-03-07] MEDS: HYDROCHLOROTHIAZIDE 12.5 MG CAPSULE (FP) PO SCH (10:51)
[2021-03-07] MEDS: IBUPROFEN 400 MG TABLET (FP) PO PRN ×2 (10:51→21:14)
[2021-03-07] MEDS: MELATONIN 5 MG TABLETS PO SCH (21:14)
[2021-03-07] MEDS: SUVOREXANT 10 MG TABLET PO PRN (21:14)
[2021-03-07] MEDS: THIAMINE HCL 100 MG TABLET (FP) PO SCH (21:14)
[2021-03-08 07:02] VITALS: TEMP 97.5
[2021-03-08] MEDS: PRENATAL VITAMINS W/ FOLIC ACID TABLET (FP) PO SCH (09:47)
[2021-03-08] MEDS: HYDROCHLOROTHIAZIDE 12.5 MG CAPSULE (FP) PO SCH (09:47)
[2021-03-08] MEDS: GABAPENTIN 300 MG CAPSULE PO SCH (09:48)
[2021-03-08 09:53] VITALS: BP 117/64; PULSE 60
== END 2021-03-08 09:57 | disposition home or self-care (01) | DRG 772 ==
LOC: YASAS 14:31 → Y3W 20:08 → Y5N 03-02 22:24
PROVIDERS: ADMIT Allergy & Immunology; ATTEND Allergy & Immunology
PROC: HZ42ZZZ Group Counseling for Substance Abuse Treatment, Cognitive-Behavioral (ICD-10-PCS; principal; 2021-02-22)
DX: F12.20 Cannabis dependence, uncomplicated (principal); F16.20 Hallucinogen dependence, uncomplicated; F19.20 Other psychoactive substance dependence, uncomplicated; F32.9 Major depressive disorder, single episode, unspecified; D50.9 Iron deficiency anemia, unspecified; G47.00 Insomnia, unspecified; I10 Essential (primary) hypertension; J45.909 Unspecified asthma, uncomplicated; Z87.891 Personal history of nicotine dependence; Z62.810 Personal history of physical and sexual abuse in childhood
CPT/HCPCS: 36415; 80053; 81003; 81025; 85027; 86780; C9803; U0003; U0005